=== PATIENT | male | born 1940 | race Two or more races ===

== ENCOUNTER 2025-05-26 10:06 | Emergency (ER) | payer MEDICARE, MEDICAID ==
[~2025-05-26] VITALS: Ht 165.1 cm; Wt 85.0 kg
[2025-05-26 10:09] VITALS: BP 148/61; PULSE 61; RESP 15; TEMP 97.1; O2SAT 96
--- NOTE | 2025-05-26 10:39 | ED.PDOC ---
History of Present Illness HPI Comments 84y M who presents to the ED for chief complaint of tube replacement. Pt presents with son who states dialysis catheter is dislodged. Pt has received dialysis at [facility] last Monday and told to make appt with [facility] to help with dialysis fistula replacement. Pt states [facility] does not repl jennifer dialysis catheters and told to come to local ED and pt came today for evaluation. Pt has not received dialysis since but denies any associated symptoms including chest pain, shortness of breath or associated symptoms. Pt otherwise denies any other symptoms. 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, Surgical History (Other): pacemaker Family History Family History: Unknown Social History Smoker: Non-Smoker Alcohol: Sober Drugs: Denies Drug Use Lives In: Home Constitutional: denies: chills, diaphoresis, fatigue, fever, malaise, sweats, weakness, others EENTM: denies: blurred vision, double vision, ear bleeding, ear discharge, ear drainage, ear pain, ear ringing, eye pain, eye redness, hearing loss, mouth pain, mouth swelling, nasal discharge, nose bleeding, nose congestion, nose pain, photophobia, tearing, throat pain, throat swelling, voice changes, others Respiratory: denies: cough, hemoptysis, orthopnea, SOB at rest, shortness of breath, SOB with excertion, stridor, wheezing, others Cardiovascular: denies: chest pain, dizzy spells, diaphoresis, Dyspnea on exertion, edema, irregular heart beat, left arm pain, lightheadedness, palpitations, PND, syncope, others Gastrointestinal: denies: abdomen distended, abdominal pain, blood streaked bowels, constipated, diarrhea, dysphagia, difficulty swallowing, hematemesis, melena, nausea, poor appetite, poor fluid intake, rectal bleeding, rectal pain, vomiting, others Genitourinary: denies: burning, dysuria, flank pain, frequency, hematuria, incontinence, penile discharge, penile sore, pain, testicle pain, testicle swelling, urgency, others Neurological: denies: dizziness, fainting, headache, left sided numbness, left sided weakness, numbness, paresthesia, pre-existing deficit, right sided numbne ss, right sided weakness, seizure, speech problems, tingling, tremors, weakness, others Musculoskeletal: denies: back pain, gout, joint pain, joint swelling, muscle pain, muscle stiffness, neck pain, others Integumetry: denies: bruises, change in color, change in hair/nails, dryness, laceration, lesions, lumps, rash, wounds, others Allergic/Immunocompromised: denies: Difficulty Healing, Frequent Infections, Hives, Itching, others Hematologic/Lymphatic: denies: anemia, blood clots, easy bleeding, easy bruising, swollen glands, others Endocrine: denies: excessive hunger, excessive sweating, excessive thirst, excessive urination, flushing, intolerance to cold, intolerance to heat, unexplained weight gain, unexplained weight loss, others Psychiatric: denies: anxiety, bipolar disorder, depression, hopeless, panic disorder, schizophrenia, sleepless, suicidal, others All Other Systems: Reviewed and Negative Physical Exam General Appearance: Mild Distress HEENT: Normal ENT Inspection, Pharynx Normal, TMs Normal Neck: Full Range of Motion, Non-Tender, Normal, Normal Inspection Respiratory: Chest Non-Tender, Lungs Clear, No Accessory Muscle Use, No Respiratory Distress, Normal Breath Sounds Cardiovascular: No Edema, No JVD, No Murmur, No Gallop, Normal Peripheral Pulses, Regular Rate/Rhythm Breast Exam: Deferred Gastrointestinal: No Organomegaly, Non Tender, No Pulsatile Mass, Normal Bowel Sounds, Soft Genitalia: Deferred Pelvic: Deferred Rectal: Deferred Extremities: No calf tenderness, Normal capillary refill, No pedal edema, Other (Dialysis fistula to the right upper extremity) Musculoskeletal : Apperance: Normal Neurologic: Alert, health care recruiter II-XII nml as Tested, No Motor Deficits, Normal Affect, Normal Mood, No Sensory Deficits Cerebellar Function: Normal Reflexes: Normal Skin: Dry, Normal Color, Warm Lymphatic: No Adenopathy Was a procedure done? Was a procedure done?: No Differential Dx Considerations may include: dialysis catheter replacement, fistula clogged, cellulitis, X-Ray, Labs, Meds, VS Vital Signs Date Time Temp Pulse Resp B/P (MAP) Pulse Ox O2 Delivery O2 Flow Rate FiO2 05/26/25 10:09 97.1 61 15 148/61 96 97.1 Lab Test 05/26/25 11:00 Range/Units White Blood Count 6.2 4.4-10.8 10^3/uL Red Blood Count 4.57 4.5-5.90 10^6/uL Hemoglobin 15.2 13.5-17.5 g/dL Hematocrit 45.7 41.0-53.0 % Mean Corpuscular Volume 99.8 80.0-100.0 fL Mean Corpuscular Hemoglobin 33.3 H 28.0-32.0 pg Mean Corpuscular Hemoglobin Concent 33.3 32.0-36.0 g/dL Red Cell Distribution Width 15.0 H 11.8-14.3 % Platelet Count 146 140-450 10^3/uL Mean Platelet Volume 7.1 6.9-10.8 fL Neutrophils (%) (Auto) 73.3 37.0-80.0 % Lymphocytes (%) (Auto) 13.7 10.0-50.0 % Monocytes (%) (Auto) 11.9 0.0-12.0 % Eosinophils (%) (Auto) 0.7 0.0-7.0 % Basophils (%) (Auto) 0.4 0.0-2.0 % Neutrophils # (Auto) 4.6 1.6-8.6 10 ^3/uL Lymphocytes # (Auto) 0.9 0.4-5.4 10 ^3/uL Monocytes # (Auto) 0.7 0-1.3 10 ^3/uL Eosinophils # (Auto) 0 0-0.8 10 ^3/uL Basophils # (Auto) 0 0-0.2 10 ^3/uL Nucleated Red Blood Cells 0.2 % Sodium Level 139 136-145 mmol/L Potassium Level 6.2 *H 3.5-5.1 mmol/L Chloride Level 95 L 98-107 mmol/L Carbon Dioxide Level 28 20-31 mmol/L Anion Gap 16 H 5-15 Blood Urea Nitrogen 108 *H 9-23 mg/dL Creatinine 11.37 *H 0.700-1.30 mg/dL Glomerular Filtration Rate Calc 4 >90 mL/min BUN/Creatinine Ratio 9.5 L 10.0-20.0 Serum Glucose 88 74-106 mg/dL Calcium Level 9.3 8.7-10.4 mg/dL IV Hep-Lock was established. The patient's CBC is within normal limits The patient's chemistry panel came back with a BUN of 108 and a creatinine of 11.37 The potassium is 6.2 We did order a study to see the patency of the fistula. It seems that the family now states that they have an appointment to get the fistula opened and they are to get dialysis. We did explain to them that this potassium is just to elevated and the patient's heart can stopped. They decided to sign out any ways and they are headed to their dialysis appointment. Time of 1ST Reevaluation: 11:10 Reevaluation 1ST: Unchanged Time of 2ND Reevaluation: 12:14 Reevaluation 2ND: Unchanged Patient Education/Counseling: Diagnosis, Treatment, Prognosis Family Education/Counseling: Diagnosis, Treatment, Prognosis SEPSIS Sepsis Screen Date sepsis recognized/suspect: May 26, 2025 Time Sepsis recognized/suspect: 1011 Recent Procedure: No On Antibiotic Therapy: No Respiratory Rate >20: No Heart Rate >90: No Temp<36 C (96.8 F) or >38.3 C: No SBP <90 or MAP <65 mmHG: No New Acute Mental Status Change: No Is the patient on CPAP, BIPAP,: No Physician Orders Fistula /Sinus Tract (05/26/25 10:44) Vital Signs Date Time Temp Pulse Resp B/P (MAP) Pulse Ox O2 Delivery O2 Flow Rate FiO2 05/26/25 10:09 97.1 61 15 148/61 96 97.1 Laboratory Tests Test 05/26/25 11:00 White Blood Count 6.2 10^3/uL (4.4-10.8) Departure 1 Departure Time of Disposition: 12:14 Impression: Primary Impression: Hyperkalemia Additional Impression: ESRD needing dialysis Disposition: LEFT AGAINST MEDICAL ADVICE Condition: Guarded Critical Care Note Critical Care Time?: No Stability Stability form required: No Heart Score Heart Score: Heart Score Response (Comments) Value History N/A 0 EKG N/A 0 Age N/A 0 Risk Factors N/A 0 Troponin N/A 0 Total 0 I personally scribed for SHARMAINE KIM MD ([email or web address]) on 05/26/25 at 10:39. Electronically submitted by Santos Cardona ([email or web address]). SHARMAINE KIM MD May 26, 2025 10:39
[2025-05-26 11:18] LABS: Hematocrit 45.7 % (41.0-53.0); Hemoglobin 15.2 g/dL (13.5-17.5); Mean Corpuscular Hemoglobin 33.3 pg (28.0-32.0); Mean Corpuscular Volume 99.8 fL (80.0-100.0); Nucleated Red Blood Cells % 0.2 %
[2025-05-26 11:28] LABS: Sodium 139 mmol/L (136-145)
[2025-05-26 11:29] LABS: Anion Gap 16 (5-15); Carbon Dioxide 28 mmol/L (20-31)
[2025-05-26 11:30] LABS: Calcium 9.3 mg/dL (8.7-10.4)
[2025-05-26 11:34] LABS: BUN/Creatinine Ratio 9.5 (10.0-20.0); Glucose 88 mg/dL (74-106)
[2025-05-26 11:38] LABS: Chloride 95 mmol/L (98-107)
[2025-05-26 11:39] LABS: Blood Urea Nitrogen 108 mg/dL (9-23); Potassium 6.2 mmol/L (3.5-5.1)
== END 2025-05-26 12:04 | disposition left against medical advice (07) ==
LOC: ER 10:06
DX: E87.5 Hyperkalemia (principal); N18.6 End stage renal disease; Z95.0 Presence of cardiac pacemaker; Z99.2 Dependence on renal dialysis; L98.8 Other specified disorders of the skin and subcutaneous tissue
CPT/HCPCS: 36415; 80048; 85025